=== PATIENT | female | born 1995 | race African-American/Black ===

== ENCOUNTER 2020-11-17 00:28 | Emergency (ER) | payer OTHER ==
[2020-11-17] MEDS ORDERED: Lidocaine 1% with EPINEPHrine 1:100,000 10 ML MDV INJECT ONE (01:29)
--- NOTE | 2020-11-17 02:29 | EDM.PDOC ---
ED HPI GENERAL MEDICAL PROBLEM - General Chief Complaint: Laceration Stated Complaint: CUT POINTER FINGER ON RIGHT HAND Time Seen by Provider: 11/17/20 01:10 - History of Present Illness INITIAL COMMENTS - FREE TEXT/NARRATIVE: Patient arrived ED by private vehicle She came to ED promptly after the injury occurred She was opening a can of tomatoes while making chili She accidentally cut the tip of the right index finger on a metal edge of the can She has no other pain or injury complaints Pain severity is mild There is no active bleeding She is right-hand dominant Tetanus vaccination less than 10 years ago Right Finger-Index Pain Score (Numeric/FACES): 10 - Related Data Allergies Allergy/AdvReac Type Severity Reaction Status Date / Time almond Allergy Hives Verified 11/17/20 01:51 apple Allergy Rash Verified 11/17/20 01:48 banana Allergy Hives Verified 11/17/20 01:49 cashew nut Allergy Hives Verified 11/17/20 01:51 coconut Allergy Hives Verified 11/17/20 01:51 cucumber Allergy Hives Verified 11/17/20 01:47 grape Allergy Hives Verified 11/17/20 01:50 hazelnut Allergy Hives Verified 11/17/20 00:58 oats Allergy Hives Verified 11/17/20 01:47 orange Allergy Hives Verified 11/17/20 01:49 peach Allergy Hives Verified 11/17/20 01:48 peanut Allergy Hives Verified 11/17/20 01:52 pear Allergy Hives Verified 11/17/20 01:48 pineapple Allergy Hives Verified 11/17/20 01:49 pistachio nut Allergy Hives Verified 11/17/20 01:50 soy Allergy Hives Verified 11/17/20 01:46 strawberry Allergy Hives Verified 11/17/20 01:50 walnut Allergy Hives Verified 11/17/20 01:51 wheat Allergy Hives Verified 11/17/20 01:47 seafood Allergy Airway Uncoded 11/17/20 01:46 Tightness Home Meds: Home Meds Cyclobenzaprine [Flexeril] 20 mg PO BEDTIME 11/17/20 [History] Dicyclomine [Bentyl] 10 mg PO DAILY PRN 11/17/20 [History] Omeprazole 20 mg PO BID 11/17/20 [History] Sucralfate [Carafate] 1 gm PO DAILY 11/17/20 [History] diphenhydrAMINE HCL [Benadryl Allergy] 25 mg PO DAILY PRN 11/17/20 [History] traMADol HCl [Tramadol HCl] 50 mg PO BEDTIME 11/17/20 [History] Past Medical History HEENT History: Reports: Allergic Rhinitis Respiratory History: Reports: Asthma, Bronchitis, Recurrent Gastrointestinal History: Reports: Gastritis, GERD Genitourinary History: Reports: UTI, Recurrent Hematologic History: Reports: Anemia - Infectious Disease History Infectious Disease History: Reports: Chicken Pox - Past Surgical History HEENT Surgical History: Reports: Adenoidectomy, Oral Surgery, Tonsillectomy Musculoskeletal Surgical History: Reports: Other (See Below) Other Musculoskeletal Surgeries/Procedures:: 2 surgery in foot Social & Family History - Tobacco Use Tobacco Use Status *Q: Current Every Day Tobacco User Years of Tobacco use: 5 Packs/Tins Daily: 1 - Caffeine Use Caffeine Use: Reports: Coffee, Energy Drinks, Soda - Recreational Drug Use Recreational Drug Use: No ED ROS GENERAL - Review of Systems Review Of Systems: See Below Skin: Reports: Wound Neurological: Denies: Numbness, Weakness ED EXAM, SKIN/RASH Exam: See Below Text/Narrative:: Constitutional - awake; alert; no acute distress Head - no facial swelling or weakness Eyes - extra ocular motion intact; conjunctiva normal ENT - no nasal deformity; no epistaxis; normal phonation Neck - no swelling Respiratory - normal respiratory effort Cardiovascular - regular rhythm; normal rate Musculoskeletal: - grossly normal strength and motion; no swelling or deformity - 1 cm laceration at tip of right index finger, with minimal gaping, scant marginal skin shaving Skin - warm; dry; laceration as noted Neurologic - normal speech; no weakness; gait intact Psychiatric - normal mood and affect; memory and attention normal ED SKIN PROCEDURES - Laceration/Wound Repair Right Digit - 2nd (Index) Appearance: Irregular, Clean Anesthetic Type: Digital Local Anesthesia - Lidocaine (Xylocaine): 1% with EPI Local Anesthetic Volume: 5cc Skin Prep: Providone-Iodine (Betadine), Saline Exploration/Debridement/Repair: Minimal Debridement Closed with: Sutures Lac/Wound length In cm: 1 Suture Size: 4-0 # of Sutures: 2 Suture Type: Nylon Sterile Dressing Applied: Nurse Complications: No Course - Vital Signs Text/Narrative:: Symptoms and examination were discussed In consideration of marginal tissue loss from skin shaving, sutured wound closure was recommended over skin adhesive Patient was agreeable with wound closure and provided verbal consent Procedure was completed as noted Patient was felt to be stable for outpatient follow-up Return precautions were provided Last Recorded V/S: Last Vital Signs Temp 36.3 C 11/17/20 00:40 Pulse 86 11/17/20 00:40 Resp 20 11/17/20 00:40 BP 145/85 H 11/17/20 00:40 Pulse Ox 99 11/17/20 00:40 - Orders/Labs/Meds Meds: Medications Discontinued Medications Generic Name Dose Route Start Last Admin Trade Name Freq PRN Reason Stop Dose Admin Lidocaine/Epinephrine 10 ml 11/17/20 01:29 11/17/20 02:06 Lidocaine 1% With Epinephrine 1:100,000 10 Ml Mdv INJECT 11/17/20 01:30 10 ml ONETIME ONE Administration Departure - Departure Time of Disposition: 02:27 Disposition: Home, Self-Care 01 Clinical Impression: Laceration of finger - Discharge Information *PRESCRIPTION DRUG MONITORING PROGRAM REVIEWED*: No *COPY OF PRESCRIPTION DRUG MONITORING REPORT IN PATIENT NIC: Not Applicable Instructions: Laceration Care, Adult Referrals: PCP,None [Primary Care Provider] - Forms: ED Department Discharge Additional Instructions: Return if condition worsens May resume general activity and regular diet as tolerated Keep wound clean and dry as far as a possible Wash wound gently as needed for hygiene, but avoid getting it wet unnecessarily or for prolonged periods There are 2 sutures which require removal in 10 days Continue usual medications Follow-up with primary care provider is recommended
== END 2020-11-17 02:36 | disposition home or self-care (01) ==
LOC: JD.ED 00:28
DX: S61.210A Laceration without foreign body of right index finger without damage to nail, initial encounter (principal); K21.9 Gastro-esophageal reflux disease without esophagitis; Z79.899 Other long term (current) drug therapy; Z72.0 Tobacco use; Z91.018 Allergy to other foods; Z91.010 Allergy to peanuts; Z91.013 Allergy to seafood; W26.8XXA Contact with other sharp object(s), not elsewhere classified, initial encounter
CPT/HCPCS: 12001; 99282; 99282-25

== ENCOUNTER 2021-03-12 11:21 | Emergency (ER) | payer OTHER ==
[2021-03-12] MEDS ORDERED: Orphenadrine 100 MG Tab.ER PO STA (13:38)
[2021-03-12] MEDS ORDERED: Ketorolac 60 MG/2 ML SDV IM ONE (13:38)
--- NOTE | 2021-03-12 14:29 | CR ---
Lumbar spine: AP and lateral views of the lumbar spine were obtained. Comparison: No prior lumbar spine imaging is available. Vertebral body heights are maintained. Minimal disc space narrowing is seen at L3-4. Pedicles are intact. Visualized transverse and spinous processes are intact. Sacroiliac joints are within normal limits. Slight straightening of the normal lordotic curve is noted which could be developmental. Impression: 1. Slight narrowing of the L3-4 disc. 2. Straightening of the lordotic curve possibly developmental in etiology. Diagnostic code #2
--- NOTE | 2021-03-12 14:37 | EDM.PDOC ---
ED HPI GENERAL MEDICAL PROBLEM - General Chief Complaint: Back Pain or Injury Stated Complaint: LOW BACK PAIN Time Seen by Provider: 03/12/21 12:57 Source of Information: Reports: Patient History Limitations: Reports: No Limitations - History of Present Illness INITIAL COMMENTS - FREE TEXT/NARRATIVE: 25-year-old female presents the emergency department today with complaints of l ow back pain that started yesterday however it has progressively gotten worse today. Patient denies any recent injury, falls or trauma noted to her back. She states she has no past medical issues associated with her back. She denies any bowel or bladder issues associated with the back pain. She denies any numbness or tingling noted to the lower extremities due to the low back pain. Patient states that nothing makes the pain worse or better. She states repositioning in the bed is even significantly painful. She denies any recent fever, chills, nausea, vomiting or diarrhea. She denies any cough, shortness of breath or flulike symptoms. Lower Back Pain Score (Numeric/FACES): 10 - Related Data Allergies Allergy/AdvReac Type Severity Reaction Status Date / Time almond Allergy Hives Verified 03/12/21 11:59 apple Allergy Rash Verified 03/12/21 11:59 banana Allergy Hives Verified 03/12/21 11:59 cashew nut Allergy Hives Verified 03/12/21 11:59 coconut Allergy Hives Verified 03/12/21 11:59 cucumber Allergy Hives Verified 03/12/21 11:59 fluoxetine [From Prozac] Allergy Bleeding Verified 03/12/21 12:02 grape Allergy Hives Verified 03/12/21 11:59 hazelnut Allergy Hives Verified 03/12/21 11:59 oats Allergy Hives Verified 03/12/21 11:59 orange Allergy Hives Verified 03/12/21 11:59 peach Allergy Hives Verified 03/12/21 11:59 peanut Allergy Hives Verified 03/12/21 11:59 pear Allergy Hives Verified 03/12/21 11:59 Penicillins Allergy Cannot Verified 03/12/21 12:02 Remember pineapple Allergy Hives Verified 03/12/21 11:59 pistachio nut Allergy Hives Verified 03/12/21 11:59 soy Allergy Hives Verified 03/12/21 11:59 strawberry Allergy Hives Verified 03/12/21 11:59 walnut Allergy Hives Verified 03/12/21 11:59 wheat Allergy Hives Verified 03/12/21 11:59 seafood Allergy Airway Uncoded 11/17/20 01:46 Tightness Home Meds: Home Meds Hydrocodone/Acetaminophen [HYDROcodone-Acetaminophen 5-325 MG] 1 each PO Q6H PRN #10 tab 03/12/21 [Rx] Past Medical History HEENT History: Reports: Allergic Rhinitis Respiratory History: Reports: Asthma, Bronchitis, Recurrent Gastrointestinal History: Reports: Gastritis, GERD Genitourinary History: Reports: UTI, Recurrent Hematologic History: Reports: Anemia - Infectious Disease History Infectious Disease History: Reports: Chicken Pox - Past Surgical History HEENT Surgical History: Reports: Adenoidectomy, Oral Surgery, Tonsillectomy Musculoskeletal Surgical History: Reports: Other (See Below) Other Musculoskeletal Surgeries/Procedures:: 2 surgery in foot Social & Family History - Tobacco Use Tobacco Use Status *Q: Never Tobacco User Second Hand Smoke Exposure: No - Caffeine Use Caffeine Use: Reports: Coffee, Soda - Recreational Drug Use Recreational Drug Use: No ED ROS GENERAL - Review of Systems Review Of Systems: Comprehensive ROS is negative, except as noted in HPI. ED EXAM,LOWER BACK PAIN/INJURY - Physical Exam Exam: See Below Exam Limited By: No Limitations General Appearance: Alert, WD/WN, No Apparent Distress Ears: Normal External Exam, Hearing Grossly Normal Nose: Normal Inspection Throat/Mouth: Normal Inspection, Normal Lips, Normal Voice, No Airway Compromise Head: Atraumatic Neck: Normal Inspection, Supple Respiratory/Chest: No Respiratory Distress, Lungs Clear, Normal Breath Sounds, No Accessory Muscle Use, Chest Non-Tender Cardiovascular: Normal Peripheral Pulses, Regular Rate, Rhythm, No Edema, No Murmur GI/Abdominal: Normal Bowel Sounds, Soft, Non-Tender, No Distention (Female) Exam: Deferred Rectal (Female) Exam: Deferred Back Exam: Normal Inspection, Paraspinal Tenderness (Lumbar area left and right lumbar), Vertebral Tenderness Extremities: Normal Inspection, Normal Range of Motion, Non-Tender, No Pedal Edema, Normal Capillary Refill Neurological: Alert, Normal Mood/Affect, Normal Gait, Oriented x 3 Psychiatric: Normal Affect, Normal Mood Skin Exam: Warm, Dry, Intact, Normal Color, No Rash Lymphatic: No Adenopathy Course - Vital Signs Text/Narrative:: As stated above, patient presents with low back discomfort. Upon physical exam, patient has full range of motion noted. She is able to ambulate. Does not note pain to left lower back with straight leg raise against resistance on the left side however is unremarkable on the right side. Remainder of physical exam is unremarkable. Will obtain x-ray of the lumbar spine. Patient will be medicated with Toradol as well as Norflex. Last Recorded V/S: Last Vital Signs Temp 98.1 F 03/12/21 11:58 Pulse 80 03/12/21 11:58 Resp 18 03/12/21 11:58 BP 160/103 H 03/12/21 11:58 Pulse Ox 100 03/12/21 11:58 - Orders/Labs/Meds Meds: Medications Discontinued Medications Generic Name Dose Route Start Last Admin Trade Name Freq PRN Reason Stop Dose Admin Ketorolac Tromethamine 60 mg 03/12/21 13:38 03/12/21 13:50 Ketorolac 60 Mg/2 Ml Sdv IM 03/12/21 13:39 60 mg ONETIME ONE Administration Orphenadrine Citrate 100 mg 03/12/21 13:38 03/12/21 13:51 Orphenadrine 100 Mg Tab.Er PO 03/12/21 13:39 100 mg NOW STA Administration - Re-Assessments/Exams Free Text/Narrative Re-Assessment/Exam: 03/12/21 15:08 Radiologist impression AP and lateral views of the lumbar spine: Vertebral body heights are maintained. Minimal to space narrowing is seen at L3-4. Pedicles are intact. Visualized transverse and spinous processes are intact. Sacroiliac joints are within normal limits. Slight straightening of the normal lordotic curve is noted which could be developmental. Impression: 1. Slight narrowing of L3-L4 disc. 2. Straightening of the lordotic curve possibly developmental in etiology. Patient reports significant decrease in back pain since receiving medications. She will be discharged home with a prescription for hydrocodone 1 tab to be taken every 6 hours as needed as well as she take ibuprofen 600 mg every 6 hours for the next 48 hours. Departure - Departure Time of Disposition: 15:10 Disposition: Home, Self-Care 01 Condition: Good Clinical Impression: Low back pain Qualifiers: Chronicity: acute Back pain laterality: unspecified Sciatica presence: without sciatica Qualified Code(s): M54.50 - Low back pain, unspecified - Discharge Information Prescriptions: Hydrocodone/Acetaminophen [HYDROcodone-Acetaminophen 5-325 MG] 1 each PO Q6H PRN #10 tab PRN Reason: Pain (Moderate 4-6) Instructions: Pain Medicine Instructions, [id number], Acute Back Pain, Adult Referrals: PCP,None [Primary Care Provider] - Forms: ED Department Discharge, ED Return to Work/School Form Additional Instructions: You were seen in the emergency department with complaints of low back pain that started yesterday and worsened today. X-rays of the low back were completed which does show some narrowing of the L3-L4 disc. This is likely the cause of your discomfort. Otherwise no other acute problems are noted. You did receive pain medication while in the emergency department and this did seem to help. I have sent prescription for narcotic pain medication called hydrocodone to [facility] up [place]. You may take 1 tab every 6 hours as needed for moderate pain, otherwise recommend that you take ibuprofen 600 mg every 6 hours for the next 48 hours. Also recommend using ice 30 minutes at a time every 3 hours while awake. Should your condition worsen or change, do not hesitate returning the emergency department. Sepsis Event Note (ED) - Focused Exam Vital Signs: Vital Signs Temp Pulse Resp BP Pulse Ox 03/12/21 11:58 98.1 F 80 18 160/103 H 100
== END 2021-03-12 15:28 | disposition home or self-care (01) ==
LOC: JD.ED 11:21
DX: M54.50 Low back pain, unspecified (principal); K21.9 Gastro-esophageal reflux disease without esophagitis; Z91.018 Allergy to other foods; Z88.0 Allergy status to penicillin; Z88.8 Allergy status to other drugs, medicaments and biological substances; Z91.013 Allergy to seafood; Z79.899 Other long term (current) drug therapy
CPT/HCPCS: 72100; 96372; 99283; A9270; J1885; 99284

== ENCOUNTER 2021-04-22 20:09 | Emergency (ER) | payer OTHER ==
[2021-04-22] MEDS ORDERED: Ketorolac 60 MG/2 ML SDV IM ONE (20:33)
[2021-04-22 21:26] LABS: CORONAVIRUS COVID-19 NAA POSITIVE (NEGATIVE)
== END 2021-04-22 21:55 | disposition home or self-care (01) ==
LOC: JD.ED 20:09
DX: U07.1 COVID-19 (principal); J45.909 Unspecified asthma, uncomplicated; Z91.018 Allergy to other foods; Z88.8 Allergy status to other drugs, medicaments and biological substances; Z91.010 Allergy to peanuts; Z88.0 Allergy status to penicillin; Z91.013 Allergy to seafood
CPT/HCPCS: 0241U; 96372; 99284; J1885